=== PATIENT | male | born 1980 | race American Indian/Alaskan Native ===

== ENCOUNTER 2018-07-21 22:04 | Observation (INO) | payer OTHER ==
[2018-07-21 22:39] LABS: EOS % 1.5 % (0-4.5); HEMATOCRIT 41.7 % (35.4-49); HEMOGLOBIN 14.1 GM/dL (11.7-16.9); LYMPH % 35.5 % (8-40); MCHC 33.7 g/dl (32.0-35.9); MEAN PLT VOLUME 7.9 fl (7.5-11.1); MONO % 6.7 % (3.8-10.2); NEUT % 55.3 % (42.8-82.8); PLATELET COUNT 278 K/MM3 (134-434); RBC 5.02 M/mm3 (4.00-5.60); RDW 13.4 % (11.9-15.9); WHITE BLOOD COUNT 10.2 K/mm3 (4.0-10.0)
--- NOTE | 2018-07-21 23:02 | PDOC ---
History of Present Illness - General Chief Complaint: Chest Pain Stated Complaint: CHEST PAIN Time Seen by Provider: 07/21/18 22:17 History Source: Patient Exam Limitations: No Limitations - History of Present Illness Initial Comments: 07/21/18 23:41 Best Contact: PCP: Dr. Raissa Toussaint Pmhx:HLD, Migraines Pshx: Denies Allergies: NKDA FH:0 Social Hx: Cigarettes/ 0 Alcohol/ 0 Drugs/0 LMP:N/A 37-year-old male who presents to the emergency department complaining of 1/10 dull nonradiating intermittent left-sided upper chest pain 20 minutes prior to his arrival to the emergency department. Patient states the pain is intermittent but pretty persistent without fever, chills, nausea/vomiting, diarrhea/constipation, headache, dizziness, lightheadedness, facial pains, neck pain/stiffness, back pains, shortness of breath, abdominal pains, flank pains, urinary symptoms. Patient states he had one similar episode 4 days ago which lasted for approximately 5 minutes while at rest and subsided on its own. There are no alleviating or exacerbating factors. 07/22/18 00:24 Past History - Past Medical History Allergies/Adverse Reactions: Allergies Allergy/AdvReac Type Severity Reaction Status Date / Time No Known Allergies Allergy Verified 07/21/18 22:13 Home Medications: Ambulatory Orders NK [No Known Home Medication] 07/22/18 COPD: No - Suicide/Smoking/Psychosocial Hx Smoking History: Never smoked Review of Systems - Review of Systems Able to Perform ROS?: Yes Comments:: 07/21/18 23:37 CONSTITUTIONAL: Absent: fever, chills, diaphoresis, generalized weakness, malaise, loss of appetite HEENT: Absent: rhinorrhea, nasal congestion, throat pain, throat swelling, difficulty swallowing, mouth swelling, ear pain, eye pain, visual Changes CARDIOVASCULAR: +left sided cp Absent:loss of consciousness, palpitations, irregular heart rate, peripheral edema RESPIRATORY: Absent: cough, shortness of breath, dyspnea with exertion, orthopnea, wheezing, stridor, hemoptysis GASTROINTESTINAL: Absent: abdominal pain, abdominal distension, nausea, vomiting, diarrhea, constipation, melena, hematochezia GENITOURINARY: Absent: dysuria, frequency, urgency, hesitancy, hematuria, flank pain, genital pain MUSCULOSKELETAL: Absent: myalgia, arthralgia, joint swelling SKIN: Absent: rash, itching, pallor HEMATOLOGIC/IMMUNOLOGIC: Absent: easy bleeding, easy bruising, lymphadenopathy, frequent infections ENDOCRINE: Absent: unexplained weight gain, unexplained weight loss, heat intolerance, cold intolerance NEUROLOGIC: Absent: headache, focal weakness or paresthesias, dizziness, unsteady gait, seizure, mental status changes, bladder or bowel incontinence PSYCHIATRIC: Absent: anxiety, depression, suicidal or homicidal ideation, hallucinations. Is the patient limited Pashto proficient: No *Physical Exam - Vital Signs Last Vital Signs Temp Pulse Resp BP Pulse Ox 97.9 F 67 18 117/76 100 07/21/18 22:45 07/21/18 22:45 07/21/18 22:07 07/21/18 22:45 07/21/18 22:07 - Physical Exam Comments: 07/21/18 23:37 GENERAL: Well developed, well nourished. Awake and alert. No acute distress. HEENT: Normocephalic, atraumatic. PERRLA, EOMI. No conjunctival pallor. Sclera are non- icteric. Moist mucous membranes. Oropharynx is clear. NECK: Supple. Full ROM. No JVD. Carotid pulses 2+ and symmetric, without bruits. No thyromegaly. No lymphadenopathy. CARDIOVASCULAR: Regular rate and rhythm. No murmurs, rubs, or gallops. Distal pulses are 2+ and symmetric. PULMONARY: No evidence of respiratory distress. Lungs clear to auscultation bilaterally. No wheezing, rales or rhonchi. ABDOMINAL: Soft. Non-tender. Non-distended. No rebound or guarding. No organomegaly. Normoactive bowel sounds. MUSCULOSKELETAL Normal range of motion at all joints. No bony deformities or tenderness. No CVA tenderness. EXTREMITIES: No cyanosis. No clubbing. No edema. No calf tenderness. SKIN: Warm and dry. Normal capillary refill. No rashes. No jaundice. NEUROLOGICAL: Alert, awake, appropriate. Cranial nerves 2-12 intact. No deficits to light touch and temperature in face, upper extremities and lower extremities. No motor deficits in the in face, upper extremities and lower extremities. Normoreflexic in the upper and lower extremities. Normal speech. Toes are down- going bilaterally. Gait is normal without ataxia. PSYCHIATRIC: Cooperative. Good eye contact. Appropriate mood and affect. Heart Score/ECG Review - History History: Slightly suspicious - Electrocardiogram EKG: Normal - Age Age: >/= 65 - Risk Factors Based on the list above the patient has:: 1-2 risk factors - Troponin Troponin: </= normal limit - Score Heart Score - Total: 3 ED Treatment Course - LABORATORY CBC & Chemistry Diagram: 07/21/18 22:27 07/21/18 22:27 - ADDITIONAL ORDERS Additional order review: Laboratory Results 07/21/18 22:27 Sodium 144 Potassium 3.8 Chloride 106 Carbon Dioxide 29 Anion Gap 9 BUN 24 H Creatinine 1.2 Creat Clearance w eGFR > 60 Random Glucose 107 H Calcium 9.2 Total Bilirubin 0.2 AST 21 ALT 24 Alkaline Phosphatase 75 Creatine Kinase 166 Creatine Kinase Index 0.6 CK-MB (CK-2) 1.1 Troponin I < 0.02 Total Protein 7.5 Albumin 4.0 07/21/18 22:27 RBC 5.02 MCV 83.0 MCHC 33.7 RDW 13.4 MPV 7.9 Neutrophils % 55.3 Lymphocytes % 35.5 Monocytes % 6.7 Eosinophils % 1.5 Basophils % 1.0 *DC/Admit/Observation/Transfer Diagnosis at time of Disposition: Chest pain Qualifiers: Chest pain type: other chest pain Qualified Code(s): R07.89 - Other chest pain - Discharge Dispostion Condition at time of disposition: Stable Decision to Admit order: Yes - Referrals - Patient Instructions - Post Discharge Activity Progress Note - Progress Note Progress Note: 2341hrs: Spoke to Dr. Raissa Toussaint/(pt states Dr. Toussaint is her physician. Dr. Toussaint says she will have hospital admit for her patient. She will be caring for pt. Req Dr. Lau to consult in the am 2347hrs: Spoke to Melissa GALICIA/Hospitalist. Will admit
[2018-07-21 23:03] LABS: ALK PHOS 75 U/L (45-117); ANION GAP 9 MMOL/L (8-16); BILIRUBIN,TOTAL 0.2 mg/dL (0.2-1); BLOOD UREA NITROGEN 24 mg/dL (7-18); CALCIUM 9.2 mg/dL (8.5-10.1); CHLORIDE 106 mmol/L (98-107); CO2 29 mmol/L (21-32); CREATININE 1.2 mg/dL (0.55-1.3); GLUCOSE,RANDOM 107 mg/dL (74-106); POTASSIUM 3.8 mmol/L (3.5-5.1); SGOT/AST 21 U/L (15-37); SGPT/ALT 24 U/L (13-61); SODIUM 144 mmol/L (136-145); TOT PROT 7.5 g/dl (6.4-8.2)
--- NOTE | 2018-07-21 23:50 | HP ---
CHIEF COMPLAINT: Chest Pain PCP: Dr. Raissa Marino HISTORY OF PRESENT ILLNESS: This is a 37 y/o young man with a PMHx of Migraine SHARMA (Naproxen). Who presents to the ED with left sided intermittent chest pressure x tonight while driving. Patient reports having a similar episode last Tuesday while at work lasting for a few minutes. Patient denies fever, chills, cough, SOB, SHARMA, dizziness, palpitations, AP, N/V/D, constipation, dysuria ER course was notable for: (1) Troponin I <0.02 (2) EKG: NSR with no ST or TWI (3) Recent Travel: None PAST MEDICAL HISTORY: None PAST SURGICAL HISTORY: None Social History: Smoking: Denies Alcohol: Denies Drugs: Denies Family History: Allergies No Known Allergies Allergy (Verified 07/21/18 22:13) HOME MEDICATIONS: REVIEW OF SYSTEMS CONSTITUTIONAL: Absent: fever, chills, diaphoresis, generalized weakness, malaise, loss of appetite, weight change HEENT: Absent: rhinorrhea, nasal congestion, throat pain, throat swelling, difficulty swallowing, mouth swelling, ear pain, eye pain, visual changes CARDIOVASCULAR: chest pain Absent: syncope, palpitations, irregular heart rate, lightheadedness, peripheral edema RESPIRATORY: Absent: cough, shortness of breath, dyspnea with exertion, orthopnea, wheezing, stridor, hemoptysis GASTROINTESTINAL: Absent: abdominal pain, abdominal distension, nausea, vomiting, diarrhea, constipation, melena, hematochezia GENITOURINARY: Absent: dysuria, frequency, urgency, hesitancy, hematuria, flank pain, genital pain MUSCULOSKELETAL: Absent: myalgia, arthralgia, joint swelling, back pain, neck pain SKIN: Absent: rash, itching, pallor HEMATOLOGIC/IMMUNOLOGIC: Absent: easy bleeding, easy bruising, lymphadenopathy, frequent infections ENDOCRINE: Absent: unexplained weight gain, unexplained weight loss, heat intolerance, cold intolerance NEUROLOGIC: Absent: headache, focal weakness or paresthesias, dizziness, unsteady gait, seizure, mental status changes, bladder or bowel incontinence PSYCHIATRIC: Absent: anxiety, depression, suicidal or homicidal ideation, hallucinations. PHYSICAL EXAMINATION Vital Signs - 24 hr 07/21/18 07/21/18 22:07 22:45 Temperature 98.1 F 97.9 F Pulse Rate 70 Pulse Rate [ 67 Right] Respiratory 18 Rate Blood Pressure 137/80 Blood Pressure 117/76 [Left Arm] O2 Sat by Pulse 100 Oximetry (%) GENERAL: Awake, alert, and fully oriented, in no acute distress. HEAD: Normal with no signs of trauma. EYES: Pupils equal, round and reactive to light, extraocular movements intact, sclera anicteric, conjunctiva clear. No lid lag. EARS, NOSE, THROAT: Ears normal, nares patent, oropharynx clear without exudates. Moist mucous membranes. NECK: Normal range of motion, supple without lymphadenopathy, JVD, or masses. LUNGS: Breath sounds equal, clear to auscultation bilaterally. No wheezes, and no crackles. No accessory muscle use. HEART: Regular rate and rhythm, normal S1 and S2 without murmur, rub or gallop. CP not reproducible ABDOMEN: Soft, nontender, not distended, normoactive bowel sounds, no guarding, no rebound, no masses. No hepatomegaly or splenomegaly. MUSCULOSKELETAL: Normal range of motion at all joints. No bony deformities or tenderness. No CVA tenderness. UPPER EXTREMITIES: 2+ pulses, warm, well-perfused. No cyanosis. No clubbing. No peripheral edema. LOWER EXTREMITIES: 2+ pulses, warm, well-perfused. No calf tenderness. No peripheral edema. NEUROLOGICAL: Cranial nerves II-XII intact. Normal speech. Gait not observed. PSYCHIATRIC: Cooperative. Good eye contact. Appropriate mood and affect. SKIN: Warm, dry, normal turgor, no rashes or lesions noted, normal capillary refill. Laboratory Results - last 24 hr 07/21/18 07/21/18 22:27 22:27 WBC 10.2 H RBC 5.02 Hgb 14.1 Hct 41.7 MCV 83.0 MCH 28.0 MCHC 33.7 RDW 13.4 Plt Count 278 MPV 7.9 Absolute Neuts (auto) 5.6 Neutrophils % 55.3 Lymphocytes % 35.5 Monocytes % 6.7 Eosinophils % 1.5 Basophils % 1.0 Nucleated RBC % 0 Sodium 144 Potassium 3.8 Chloride 106 Carbon Dioxide 29 Anion Gap 9 BUN 24 H Creatinine 1.2 Creat Clearance w eGFR > 60 Random Glucose 107 H Calcium 9.2 Total Bilirubin 0.2 AST 21 ALT 24 Alkaline Phosphatase 75 Creatine Kinase 166 Creatine Kinase Index 0.6 CK-MB (CK-2) 1.1 Troponin I < 0.02 Total Protein 7.5 Albumin 4.0 ASSESSMENT/PLAN: This is a 37 y/o young man with no PMHx. Placed on Tele Observation for Chest Pain r/o ACS for further evaluation of their emergent condition. Plan: 1. Cardiovascular: r/o ACS Continue Cardiac monitoring Heart Score 1 RICHAR 0 Serial Enzymes EKG- NSR no ST or TWI Appreciate Cardiology Consult Echo Will defer Stress Test to Cardiology Chest Xray-pending Lipid Panel, HgbA1c in am Asa given in ED, will continue PT/INR in am Monitor CBC, BMP FEN PO fluids as tolerated Replete lytes prn Low Na Diet DVT ppx OOB SCDs Code Status: Full Code Dispo: Observation Problem List - Problem (1) Chest pain Code(s): R07.9 - CHEST PAIN, UNSPECIFIED Qualifiers: Chest pain type: other chest pain Qualified Code(s): R07.89 - Other chest pain; R07.8 - Other chest pain Visit type - Emergency Visit Emergency Visit: Yes ED Registration Date: 07/21/18 Care time: The patient presented to the Emergency Department on the above date and was hospitalized for further evaluation of their emergent condition. - New Patient This patient is new to me today: Yes Date on this admission: 07/21/18 - Critical Care Critical Care patient: No
[2018-07-22] MEDS ORDERED: ASPIRIN 81 MG CHEWABLE TABLETS PO ONE (00:14)
[2018-07-22] MEDS ORDERED: ASPIRIN 81 MG CHEWABLE TABLETS ONE (01:35)
[2018-07-22 04:04] LABS: COCAINE, UR NEGATIVE ng/ml (CUTOFF=300); METHADONE, UR NEGATIVE ng/ml (CUTOFF=300); OPIATES, URI NEGATIVE ng/ml (CUTOFF=300); PHENCYCLIDINE,URINE NEGATIVE ng/ml (CUTOFF=25); URINE AMPHETAMINES NEGATIVE ng/ml (CUTOFF=500); URINE BARBITURATES NEGATIVE ng/ml (CUTOFF=200); URINE BENZODIAZEPINES NEGATIVE ng/ml (CUTOFF=200)
[2018-07-22 04:20] VITALS: BMI 24.5
[2018-07-22 07:41] LABS: BASO % 0.3 % (0-2.0); EOS % 1.8 % (0-4.5); HEMATOCRIT 41.1 % (35.4-49); HEMOGLOBIN 13.6 GM/dL (11.7-16.9); LYMPH % 32.6 % (8-40); MCH 27.5 pg (25.7-33.7); MCHC 33.1 g/dl (32.0-35.9); MEAN CELL VOLUME 83.1 fl (80-96); MEAN PLT VOLUME 8.1 fl (7.5-11.1); MONO % 7.9 % (3.8-10.2); NEUT % 57.4 % (42.8-82.8); PLATELET COUNT 238 K/MM3 (134-434); RBC 4.94 M/mm3 (4.00-5.60); RDW 13.9 % (11.9-15.9); WHITE BLOOD COUNT 7.9 K/mm3 (4.0-10.0)
[2018-07-22 08:29] LABS: INR 1.03 (0.83-1.09); PROTHROMBIN TIME (PATIENT) 12.1 SEC (9.7-13.0)
[2018-07-22 08:45] LABS: ANION GAP 8 MMOL/L (8-16); BLOOD UREA NITROGEN 20 mg/dL (7-18); CALCIUM 8.8 mg/dL (8.5-10.1); CHLORIDE 108 mmol/L (98-107); CHOLESTEROL 216 mg/dL (50-200); CO2 28 mmol/L (21-32); GLUCOSE,RANDOM 88 mg/dL (74-106); HDL CHOLESTEROL 58 mg/dL (40-60); MAGNESIUM 2.1 mg/dL (1.8-2.4); PHOSPHOROUS 3.7 mg/dL (2.5-4.9); POTASSIUM 4.2 mmol/L (3.5-5.1); SODIUM 144 mmol/L (136-145); TRIGLYCERIDES 49 mg/dL (0-150)
--- NOTE | 2018-07-22 08:59 | PN ---
Progress Note (short form) - Note Progress Note: Chief Complaint: Events noted, notes reviewed, chest pain syndrome, sinus rhythm is noted History of Present Illness: Seen and examined on telemetry. Full consult dictated - Current Medication List Current Medications Aspirin (Asa -) 81 mg PO DAILY JANINE Aspirin (Ecotrin -) 162 mg PO DAILY JANINE Review of Systems Cardiovascular: As noted above Respiratory: denies: denies: Cough or Sputum Production Gastrointestinal: denies: Nausea, Vomiting, Diarrhea, Constipation or Abdominal Discomfort Musculoskeletal: No Symptoms Reported Endocrine: No Symptoms Reported - Objective Vital Signs: Last Vital Signs Temp Pulse Resp BP Pulse Ox 97.5 F L 65 18 109/66 100 07/22/18 04:28 07/22/18 04:28 07/22/18 04:28 07/22/18 04:28 07/22/18 04:28 Intake & Output 07/19/18 07/20/18 07/21/18 07/22/18 23:59 23:59 23:59 23:59 Intake Total 250 Balance 250 Weight 160 lb 161 lb Constitutional: No Distress Respiratory: Clear to A&P Cardiovascular: S1 S2 Regular Rate and Rhythm No Murmurs Clicks or Gallops Gastrointestinal: Soft Benign Normal Bowel Sounds Ext: No Edema intact distal pulses no calf tenderness Labs: Troponin, BNP 07/21/18 07/22/18 22:27 06:35 Troponin I < 0.02 < 0.02 CBC, BMP 07/22/18 06:35 07/22/18 06:35 Hepatic Panel Total Bilirubin 0.2 mg/dL (0.2-1) 07/21/18 22:27 AST 21 U/L (15-37) 07/21/18 22:27 ALT 24 U/L (13-61) 07/21/18 22:27 Alkaline Phosphatase 75 U/L (45-117) 07/21/18 22:27 Albumin 4.0 g/dl (3.4-5.0) 07/21/18 22:27 Assessment/Plan Assessment: 1. Chest pain syndrome atypical for coronary artery disease/angina pectoris 2. Hypercholesterolemia 3. History of headaches, unclear if migraine headaches PLAN: 1. Continue ASA therapy 2. Recommend the addition of Crestor therapy 3. May consider B-Raven therapy addition if above headaches are deemed migraine headaches, hemodynamics permitting 4. Can be D/C home from the cardiovascular point of view and further evaluation to be performed as outpatient including ETT/echocardiography Above was reviewed in detail with the patient Ulysses Villalpando M.D.
--- NOTE | 2018-07-22 09:40 | CONS ---
DATE OF CONSULTATION: 07/22/2018 REQUESTING PHYSICIAN: Saravanan Larios MD CHIEF COMPLAINT: Chest pain. This is a 37-year-old male of [place] with no significant past medical history other than hypercholesterolemia, currently on no statin therapy, and headaches, who denied any history of hypertensive cardiovascular disease, diabetes mellitus, tobacco abuse, or family history of premature coronary artery disease , who presented to [facility] with a few days of recurrent episodes of left-sided chest discomfort which were noted both at rest and with activity. Symptoms usually subside spontaneously within a few minutes. Patient denied any associated symptomatology, i.e. diaphoresis. Patient denied any dyspnea, orthopnea, paroxysmal nocturnal dyspnea, or peripheral edema. Patient denied any palpitations, dizziness, lightheadedness, or syncope. PAST MEDICAL HISTORY: Hypercholesterolemia, currently on no statin therapy; headaches, unclear if migraine headaches. SURGICAL HISTORY: None. SOCIAL HISTORY: Nonsmoker. FAMILY HISTORY: No family history of premature coronary artery disease. ALLERGIES: None reported. MEDICAL THERAPY AT HOME: None. Currently includes aspirin daily. REVIEW OF SYSTEMS: Head and Neck: Denies headache, photophobia, blurring of vision. Respiratory: No cough or sputum production. Cardiovascular: As noted above. Gastrointestinal: Denied nausea, vomiting, diarrhea, abdominal discomfort. Genitourinary: No symptoms reported. Musculoskeletal: No symptoms reported. PHYSICAL EXAMINATION: Vital Signs: Blood pressure is 109/66 mmHg. Pulse rate is 65 beats per minute. Head and Neck: Pupils equally reactive to light and accommodation. Extraocular muscles are intact. Anicteric sclerae. Negative JVD. No bruit appreciated. Chest: Clear to auscultation and percussion. Cardiovascular: S1 and S2 regular. No murmur, clicks, or gallops. Abdomen: Soft, benign. Normoactive bowel sounds. Extremities: Negative edema. Intact distal pulses. No calf tenderness. Electrocardiogram revealed sinus rhythm with a right-sided conduction delay. CBC revealed white cell count 10.9, hemoglobin 13.6, platelet count 338. Basic metabolic profile revealed sodium 144, potassium 4.2, BUN 20, creatinine 1.0, glucose 88. Troponin x2 less than 0.02. ASSESSMENT: 1. Chest pain syndrome, atypical for coronary artery disease, angina pectoris. 2. Hypercholesterolemia. 3. History of headaches, unclear if migraine headaches. RECOMMENDATION: 1. Continuation of aspirin therapy. 2. Recommend the addition of Crestor therapy considering the above-noted history. 3. May consider beta-jenniffer therapy addition if the above headaches are deemed migraine headaches, hemodynamics permitting. 4. Patient can be discharged home from the cardiovascular point of view for further evaluation to be performed on outpatient basis including stress test/echocardiography. Above was reviewed in detail with the patient. Thank you for the kind referral. LUCY CORTEZ M.D. GREGORIO/[id number] MTDD
[2018-07-22] MEDS ORDERED: ASPIRIN COATED 81 MG TABLET.EC PO SCH ×2 (10:00)
[2018-07-22] MEDS ORDERED: ASPIRIN 81 MG CHEWABLE TABLETS PO SCH (10:00)
--- NOTE | 2018-07-22 10:57 | DS ---
Physical Examination Vital Signs: Vital Signs Temperature 97.5 F L 07/22/18 04:28 Pulse Rate 65 07/22/18 04:28 Respiratory Rate 18 07/22/18 04:28 Blood Pressure 109/66 07/22/18 04:28 O2 Sat by Pulse Oximetry (%) 100 07/22/18 04:28 Findings/Remarks: feels well no complains chart reviewed mi ruled out Constitutional: Yes: No Distress Eyes: Yes: Conjunctiva Clear Neck: Yes: Supple Cardiovascular: Yes: Regular Rate and Rhythm Respiratory: Yes: CTA Bilaterally Gastrointestinal: Yes: Soft Edema: No Neurological: Yes: WNL Labs: CBC, BMP 07/22/18 06:35 07/22/18 06:35 Discharge Summary Reason For Visit: CHEST PAIN Current Active Problems Chest pain (Acute) Hospital Course: admitted for cp Atypical ND ruled out d/c home today stress test as out pt start on asa/ statin Discussed with Dr. Cao also Condition: Stable - Instructions Referrals: Homer Vaz MD [Primary Care Provider] - Disposition: HOME - Home Medications Comprehensive Discharge Medication List: Ambulatory Orders Aspirin [ASA -] 81 mg PO DAILY tab.chew 07/22/18 Atorvastatin Ca [Lipitor] 10 mg PO HS #30 tablet 07/22/18
[2018-07-22 11:39] VITALS: BP 123/71; PULSE 77; TEMP 98.5
--- NOTE | 2018-07-22 14:57 | EKG ---
Test Reason : Blood Pressure : / mmHG Vent. Rate : 072 BPM Atrial Rate : 072 BPM P-R Int : 142 ms QRS Dur : 098 ms QT Int : 376 ms P-R-T Axes : 077 050 045 degrees QTc Int : 411 ms NORMAL SINUS RHYTHM WITH SINUS ARRHYTHMIA POSSIBLE LEFT ATRIAL ENLARGEMENT BORDERLINE ECG NO PREVIOUS ECGS AVAILABLE Confirmed by MD Liliane, Ruben ([id number]) on 07/22/2018 2:57:21 PM Referred By: Confirmed By:Ruben Momin MD
[2018-07-22] MEDS ORDERED: ROSUVASTATIN CA 10 MG TABLET (FP) PO SCH (22:00)
== END 2018-07-22 12:34 | disposition home or self-care (01) ==
LOC: JER 22:04 → JERBED 23:40 → UNDOADMOB 23:47 → JERBED 23:47 → J4W 07-22 04:01
PROVIDERS: ADMIT Internal Medicine; ATTEND Internal Medicine
DX: R07.89 Other chest pain (principal); E78.00 Pure hypercholesterolemia, unspecified
CPT/HCPCS: 36415; 71046-TC-FY; 80048; 80053; 80061; 80307; 82550; 82553; 83036; 83721; 83735; 84100; 84484; 85025; 85610; 93005; 93010; 99285-25; G0378

== ENCOUNTER 2019-06-10 08:46 | Emergency (ER) | payer OTHER | END 2019-06-10 13:52 | disposition home or self-care (01) | LOC: JER 08:46 ==